=== PATIENT | male | born 2000 | race Caucasian/White ===

== ENCOUNTER 2018-01-15 11:45 | Emergency (ER) | payer BC, SELFPAY ==
[2018-01-15 11:46] VITALS: BP 143/82; PULSE 105; RESP 16; TEMP 35.8; O2SAT 98; BMI 26.7
--- NOTE | 2018-01-15 11:55 | US_ITS ---
STUDY: SCROTUM ULTRASOUND REASON FOR EXAM: Male, 17 years old. One-week history of right testicular pain. TECHNIQUE: Ultrasound evaluation of the scrotum was performed with color Doppler and static mendez-scale imaging. COMPARISON: None. FINDINGS: RIGHT TESTICLE INTRATESTICULAR: There is a normal size of the right testicle. The right testicle measures 4.6 cm x 3.0 cm x 2.4 cm. There is a homogenous echotexture. There is normal arterial and normal venous vascularity. There is no demonstrated right testicular mass or cyst. EXTRATESTICULAR: The epididymis is normal in size. The epididymis head measures 0.7 cm x 1.1 cm x 1.1 cm. There is normal vascularity of the epididymis. There is no demonstrated epididymal cystic structure. There is a small hydrocele. There is no demonstrated varicocele. There is no demonstrated extratesticular mass or cyst. LEFT TESTICLE INTRATESTICULAR: There is a normal size of the left testicle. The left testicle measures 4.6 cm x 3.0 cm x 2.4 cm. There is a homogenous echotexture. There is normal arterial and normal venous vascularity. There is no demonstrated left testicular mass or cyst. EXTRATESTICULAR: The epididymis is normal in size. The epididymis head measures 0.9 cm x 1.5 cm x 0.9 cm. There is normal vascularity of the epididymis. There is a well-defined cystic structure within the epididymis, without internal echoes, consistent with an epididymal cyst. This measures 2 mm x 2 mm x 2 mm. There is a small hydrocele. There is no demonstrated varicocele. There is no demonstrated extratesticular mass or cyst. US/Testicular with Arterial Flow IMPRESSION: Small bilateral hydroceles. Small left epididymal cyst. Electronically Signed: Marquis Biggs MD at 13:41 EST Tel [phone], Service support ,
--- NOTE | 2018-01-15 13:55 | ED.VISSUMM ---
- ER Visit Summary Date of Service: 01/15/18 Chief Complaint: [Right testicle pain] History of Present Illness: The patient is a 17 M [presents the emergency department with complaint of pain in his right testicle that he said for about a week. Patient denies any trauma. He denies any fever. He denies any abnormal discharge from his penis. He has had no history of similar pain. Patient states that he notices the discomfort more when he bumps up against something or something rubs against his right testicle.] Physical Examination: [HEENT-PERRLA, EOMI. Cranial nerves II through XII grossly intact. TMs clear. Mucous membranes moist. No adenopathy. Cardiovascular-regular rate and rhythm without murmur or ectopy Lungs-clear to auscultation, chest wall stable without crepitus or subcu emphysema Abdomen-normoactive bowel sounds, soft, nontender, no rebound or rigidity, no peritoneal signs. exam-circumcised male, no significant edema noted of the scrotum. Patient has some mild tenderness to the superior posterior aspect of the right testicle and there is a small seedlike mass noted just above the testicle that is tender to palpation. No significant tenderness over the epididymis. Testicle has a normal lie. Patient has normal cremasteric reflex. Extremities-intact ?4, normal range of motion, normal pulses, atraumatic] Test Results: [Ultrasound of the testicles obtained showed small bilateral hydroceles and a left epididymal cyst otherwise nothing significant] Emergency Department Course and Treatment: [] Treatment Plan: [Patient advised use ibuprofen for discomfort and I will give him a referral to urology station air traffic control specialist if his pain should persist.] Disposition: [Discharged home in stable condition] Impression: [Right testicle pain Bilateral small hydroceles] This note was generated with [employer] dictation software. It may contain incorrect words, spelling, and punctuation that were not noted in review of the chart prior to signing ED Disposition - Plan for ED Patient: Chief Complaint: Male Pain/Injury Referrals: Care Physician,No Primary [Primary Care Provider] -
--- NOTE | 2018-01-15 13:58 | ED.DCSUM_ITS ---
- ER Visit Summary Date of Service: 01/15/18 Chief Complaint: [Right testicle pain] History of Present Illness: The patient is a 17 M [presents the emergency department with complaint of pain in his right testicle that he said for about a week. Patient denies any trauma. He denies any fever. He denies any abnormal discharge from his penis. He has had no history of similar pain. Patient states that he notices the discomfort more when he bumps up against something or something rubs against his right testicle.] Physical Examination: [HEENT-PERRLA, EOMI. Cranial nerves II through XII grossly intact. TMs clear. Mucous membranes moist. No adenopathy. Cardiovascular-regular rate and rhythm without murmur or ectopy Lungs-clear to auscultation, chest wall stable without crepitus or subcu emphysema Abdomen-normoactive bowel sounds, soft, nontender, no rebound or rigidity, no peritoneal signs. exam-circumcised male, no significant edema noted of the scrotum. Patient has some mild tenderness to the superior posterior aspect of the right testicle and there is a small seedlike mass noted just above the testicle that is tender to palpation. No significant tenderness over the epididymis. Testicle has a normal lie. Patient has normal cremasteric reflex. Extremities-intact ?4, normal range of motion, normal pulses, atraumatic] Test Results: [Ultrasound of the testicles obtained showed small bilateral hydroceles and a left epididymal cyst otherwise nothing significant] Emergency Department Course and Treatment: [] Treatment Plan: [Patient advised use ibuprofen for discomfort and I will give him a referral to urology air transport professionals if his pain should persist.] Disposition: [Discharged home in stable condition] Impression: [Right testicle pain Bilateral small hydroceles] This note was generated with [employer] dictation software. It may contain incorrect words, spelling, and punctuation that were not noted in review of the chart prior to signing ED Disposition - Plan for ED Patient: Chief Complaint: Male Pain/Injury Referrals: Care Physician,No Primary [Primary Care Provider] -
--- NOTE | 2018-01-15 13:58 | ED.DEP ---
ED Disposition - Plan for ED Patient: Chief Complaint: Male Pain/Injury Instructions: ED Hydrocele Type Not Specified Prescriptions: Naproxen [Naprosyn] 500 mg PO BID PRN #20 tab Referrals: Care Physician,No Primary [Primary Care Provider] - Augustine Lewis MD [STAFF PHYSICIAN] - 5-7 Days
== END 2018-01-15 14:10 | disposition home or self-care (01) ==
LOC: ED 12:11
PROVIDERS: Emergency Provider Emergency Medicine
DX: N50.811 Right testicular pain (principal); N43.3 Hydrocele, unspecified; N50.3 Cyst of epididymis
CPT/HCPCS: 76870; 93976; 99282